=== PATIENT | male | born 1965 | race Caucasian/White ===

== ENCOUNTER 2024-02-07 09:28 | Outpatient (CLI) | payer OTHER, SELFPAY ==
--- NOTE | ~2024-02-07 | CT_ITS ---
EXAMINATION:CT lung screening DATE: 02/07/2024 09:49 INDICATION: Nicotine dependence. Current smoker with 42 pack year history. TECHNIQUE: Computed tomography (CT) of the chest was performed without intravenous contrast. Automate d exposure control and iterative reconstruction technique were employed. The dose-length product (DLP ) was 114.48 mGy-cm. COMPARISON: None. FINDINGS: The lungs demonstrate mild atelectasis. There are pleural plaques bilaterally, which may be seen with asbestos exposure. No pleural effusion. The heart size is normal. No pericardial effusion. There are coronary artery calcifications. There is mild bilateral gynecomastia. There is a 2.[address] in left kidney. There is mild thoracic spondylosis. There is mild chronic height loss of multiple vertebral bodies. IMPRESSION: 1. Lung-RADS category 2: Benign appearance or behavior. Continue annual screening with noncontrast lo w-dose chest CT in 12 months. Reviewed, dictated and finalized at location B. IMPRESSION: 1. Lung-RADS category 2: Benign appearance or behavior. Continue annual screeni ng with noncontrast low-dose chest CT in 12 months.
== END 2024-02-07 09:29 | disposition home or self-care (01) ==
PROVIDERS: PCP Internal Medicine; Visit Provider Internal Medicine
DX: Z12.2 Encounter for screening for malignant neoplasm of respiratory organs (principal); Z87.891 Personal history of nicotine dependence
CPT/HCPCS: 71271

== ENCOUNTER 2024-08-25 20:39 | Emergency (ER) | payer OTHER, SELFPAY ==
--- OUTSIDE RECORDS SUMMARY | 2024-08-25 20:42 | XMS_ITS | Data Portability ---
Author Organization [facility], Main Office Address [address] [place] [address] Care Team Providers Care Biologist Name Role Phone JADEN WALLACE Primary Care Provider JADEN WALLACE Referring Provider JADEN WALLACE Primary Care Provider [facility] Plan Administrator Assessment No assessment recorded. Plan of Treatment Reminders Order Date Submit Date Provider Last Modified By Organization Details Last Modified Time Details Appointments Any 15 2024 09:45A M Jaden Wallace MD Not available Not available Not available Lab urinalysi s, dipstick 2024 025 [email or web address] [facility], [address] [facility] [address], [place], [address], 06/06/2024 10:53:43 CBC w/ auto diff 2023 024 [facility] (Lab), [address] [place], [address], 01/23/2024 19:23:26 vitamin D, 25-hydrox y, total, serum 2023 024 [facility] (Lab), [address] [place], [address], 01/23/2024 20:53:39 TSH, serum or plasma 2023 024 [facility] (Lab), [address] [place], [address], 01/23/2024 20:07:55 vitamin B12, serum 2023 [facility] (Lab), [address] [place], [address], 01/23/2024 20:33:25 testoster one, free + total, serum 2023 [email or web address] [facility] (Lab), [address] [place], [address], 01/30/2024 08:22:52 glycohemo globin, total, blood 2023 [facility] (Lab), [address] [place], [address], 01/23/2024 20:39:19 PSA, serum or plasma 2023 [facility] (Lab), [address] [place], [address], 01/23/2024 20:53:39 CMP, serum or plasma 2023 [facility] (Lab), [address] [place], [address], 01/23/2024 19:37:57 lipid panel, serum 2023 [facility] (Lab), [address] [place], [address], 01/23/2024 19:38:00 Referral None recorded. Procedures colonosco py screening (PROC) - Please call patient to schedule. 2023 [email or web address] Jennifer Rogers MD, [address], [place], [address], 04/03/2024 12:13:28 Surgeries None recorded. Imaging LDCT, chest, for lung cancer screening - Please call patient to schedule. Auth #[id number] 70 good for any in network facility as long as it is completed between 4 and 4. 2023 024 [facility], [address], [place], [address], 02/15/2024 09:22:17 Medication Orders tamsulosi n 0.4 mg capsule 2024 025 [facility] #[id number], [address], [place], [place], [id number], 06/06/2024 10:50:43 cyanocoba tete (vit B-12) 1,000 mcg/mL injection solution [address] [facility]18068, [address], [place], [place], [id number], 05/24/2024 11:25:31 albuterol sulfate HFA 90 mcg/actua tion aerosol inhaler 2024 025 [facility] #55844, [address], [place], [id number], 05/24/2024 10:36:29 cyanocoba tete (vit B-12) 1,000 mcg/mL injection solution [address] [facility]79033, [address], [place], [place], [id number], 02/02/2024 17:19:31 Patient TargetsNo targets recorded. Patient Instructions Encounter Date Encounter Id Patient Instructions Last Modified By Organization Details Last Modified Time 01/23/2024 [id number] advance care planning: care instructions Not available 01/23/2024 16:57:34 advance directives: care instructions Not available 01/23/2024 16:57:34 [place] Advance Directives Not available 01/23/2024 16:57:34 risk assessment* Not available 01/23/2024 16:57:34 INFLUENZA VACCIN E Recommended today, but patient declined TD/TDAP Recommended today, patient declined Ordered Patient will get at local pharmacy/health department PNEUMONIA VACCINE Ordered Recommend ed today, patient declined Patient will get at local pharmacy/health department Recomm ended at age 67 SHINGLES Ordered Recommend ed today, patient declined Patient will get at local pharmacy/health department PSA Ordered COLORECTAL SCREENING Recommended today, but patient declined Ordered DEPRESSION SCREENING Negative Positive BMI Overweight Approp riate Continue healthy eating & exercise NUTRITION Continue healthy eating & exercise PHYSICAL ACTIVITY Need more exercise/physical activity minimum of 10-20 minutes of activity that causes mild breathlessness/da y ALCOHOL USE No alcohol use Occasional/So cial Use TOBACCO USE former smoker current tobacco use LUNG CANCER SCREENING SEXUALLY ACTIVE Yes, Patient is in monogamous relationship HEPATITIS C SCREENING Not indicated GLUCOSE SCREENING Ordered Not needed LIPID SCREENING Ordered [email or web address] Not available 01/23/2024 13:21:42 05/24/2024 [id number] INFLUENZA VACCIN E Recommended today, but patient declined TD/TDAP Recommended today, patient declined Ordered Patient will get at local pharmacy/health department PNEUMONIA VACCINE Ordered Recommend ed today, patient declined Patient will get at local pharmacy/health department Recomm ended at age 67 SHINGLES Ordered Recommend ed today, patient declined Patient will get at local pharmacy/health department PSA Ordered COLORECTAL SCREENING Recommended today, but patient declined Ordered DEPRESSION SCREENING Negative Positive BMI Overweight Approp riate Continue healthy eating & exercise NUTRITION Continue healthy eating & exercise PHYSICAL ACTIVITY Need more exercise/physical activity minimum of 10-20 minutes of activity that causes mild breathlessness/da y ALCOHOL USE No alcohol use Occasional/So cial Use TOBACCO USE former smoker current tobacco use LUNG CANCER SCREENING SEXUALLY ACTIVE Yes, Patient is in monogamous relationship HEPATITIS C SCREENING Not indicated GLUCOSE SCREENING Ordered Not needed LIPID SCREENING Ordered [email or web address] Not available 05/24/2024 10:04:37 06/06/2024 [id number] 1. I will send a prescription for tamsulosin dispensed 90 with 3 refills 2. I will also send a urine test for Exosome which will help us decide whether he needs a biopsy or not 3. We will schedule him for a telehealth after the results return and also discuss how he is doing in terms of his voiding after starting tamsulosin [email or web address] Not available 06/06/2024 10:50:35 Reason for Referral None Reported. Results Created Date Observation Date Name Description Value Unit Range Abnormal Flag Note LastModifiedBy Organization Detail LastModifiedTime 01/23/2001/23/2024 CBC/C OMPLE TE BLD COUNT W/DIF F white blood cells 7.9 x10'3 /uL 4.2-10 .8 Not Available [facility] (Lab) [address] [place], [address], 01/23/2024 19:23:26 01/23/2001/23/2024 CBC/C OMPLE TE BLD COUNT W/DIF F red blood cells 4.92 x10'6 /uL 4.10-5 .80 Not Available [facility] (Lab) [address] [place], [address], 01/23/2024 19:23:26 01/23/2001/23/2024 CBC/C OMPLE TE BLD COUNT W/DIF F hemoglobin 15.8 g/dL 13.2-1 7.0 Not Available [facility] (Lab) [address] [place], [address], 01/23/2024 19:23:26 01/23/2001/23/2024 CBC/C OMPLE TE BLD COUNT W/DIF F hematocrit 47.2 % 39.3-5 0.0 Not Available [facility] (Lab) [address] [place], [address], 01/23/2024 19:23:26 01/23/2001/23/2024 CBC/C OMPLE TE BLD COUNT W/DIF F mean red cell volume 95.9 fL 80.0-9 7.0 Not Available [facility] (Lab) [address] [place], [address], 01/23/2024 19:23:26 01/23/2001/23/2024 CBC/C OMPLE TE BLD COUNT W/DIF F mean red cell hemoglobin 32.1 pg 27.0-3 3.0 Not Available [facility] (Lab) [address] [place], [address], 01/23/2024 19:23:26 01/23/20 24 01/23/2024 CBC/C OMPLE TE BLD COUNT W/DIF F mean RBC HGB concentratio n 33.5 g/dL 31.0-3 6.0 Not Available [facility] (Lab) [address] [place], [address], 01/23/2024 19:23:26 01/23/2001/23/2024 CBC/C OMPLE TE BLD COUNT W/DIF F red cell distribution width 14.2 % 11.8-1 5.5 Not Available [facility] (Lab) [address] [place], [address], 01/23/2024 19:23:26 01/23/2001/23/2024 CBC/C OMPLE TE BLD COUNT W/DIF F platelets 246 x10'3 /uL 150-40 0 Not Available [facility] (Lab) [address] [place], [address], 01/23/2024 19:23:26 01/23/2001/23/2024 CBC/C OMPLE TE BLD COUNT W/DIF F mean platelet volume 11.4 fL 9.0-12 .4 Not Available [facility] (Lab) [address] [place], [address], 01/23/2024 19:23:26 01/23/2001/23/2024 CBC/C OMPLE TE BLD COUNT W/DIF F neutrophils 69.0 % 39.0-7 2.0 Not Available [facility] (Lab) [address] [place], [address], 01/23/2024 19:23:26 01/23/2001/23/2024 CBC/C OMPLE TE BLD COUNT W/DIF F lymphocytes 19.6 % 16.0-4 7.0 Not Available [facility] (Lab) [address] [place], [address], 01/23/2024 19:23:26 01/23/20 24 01/23/2024 CBC/C OMPLE TE BLD COUNT W/DIF F monocytes 9.4 % 5.0-12 .0 Not Available [facility] (Lab) [address] [place], [address], 01/23/2024 19:23:26 01/23/2001/23/2024 CBC/C OMPLE TE BLD COUNT W/DIF F eosinophils 1.1 % 1.0-7. 0 Not Available [facility] (Lab) [address] [place], [address], 01/23/2024 19:23:26 01/23/2001/23/2024 CBC/C OMPLE TE BLD COUNT W/DIF F basophils 0.6 % 0.0-2. 0 Not Available [facility] (Lab) [address] [place], [address], 01/23/2024 19:23:26 01/23/2001/23/2024 CBC/C OMPLE TE BLD COUNT W/DIF F immature granulocytes 0.3 % 0.00-0 .50 Not Available [facility] (Lab) [address] [place], [address], 01/23/2024 19:23:26 01/23/2001/23/2024 CBC/C OMPLE TE BLD COUNT W/DIF F neutrophils, absolute count 5.45 x10'3 /uL 1.5-8. 0 Not Available [facility] (Lab) [address] [place], [address], 01/23/2024 19:23:26 01/23/20 24 01/23/2024 CBC/C OMPLE TE BLD COUNT W/DIF F lymphocytes, absolute count 1.55 x10'3 /uL 1.07-3 .43 Not Available [facility] (Lab) [address] [place], [address], 01/23/2024 19:23:26 01/23/20 24 01/23/2024 CBC/C OMPLE TE BLD COUNT W/DIF F monocytes, absolute count 0.74 x10'3 /uL 0.29-0 .99 Not Available [facility] (Lab) [address] [place], [address], 01/23/2024 19:23:26 01/23/2001/23/2024 CBC/C OMPLE TE BLD COUNT W/DIF F eosinophils, absolute count 0.09 x10'3 /uL 0.02-0 .53 Not Available [facility] (Lab) [address] [place], [address], 01/23/2024 19:23:26 01/23/20 24 01/23/2024 CBC/C OMPLE TE BLD COUNT W/DIF F basophils, absolute count 0.05 x10'3 /uL 0.01-0 .08 Not Available [facility] (Lab) [address] [place], [address], 01/23/2024 19:23:26 01/23/2001/23/2024 CBC/C OMPLE TE BLD COUNT W/DIF F immature granulocytes ,absolute 0.02 x10'3 /uL 0.00-0 .05 Not Available [facility] (Lab) [address] [place], [address], 01/23/2024 19:23:26 01/23/20 24 01/23/2024 CBC/C OMPLE TE BLD COUNT W/DIF F nucleated red blood cells 0.0 % -0 Not Available [facility] (Lab) [address] [place], [address], 01/23/2024 19:23:26 01/23/2001/23/2024 CBC/C OMPLE TE BLD COUNT W/DIF F NRBC# 0.00 x10'3 /uL Not Available [facility] (Lab) [address] [place], [address], 01/23/2024 19:23:26 01/23/2001/23/2024 COMPR EHENS HERMAN METAB OLIC PANEL sodium 138 mmol/ L 137-14 5 Not Available [facility] (Lab) [address] [place], [address], 01/23/2024 19:37:57 01/23/2001/23/2024 COMPR EHENS HERMAN METAB OLIC PANEL potassium 5.1 mmol/ L 3.5-5. 1 Not Available [facility] (Lab) [address] [place], [address], 01/23/2024 19:37:57 01/23/2001/23/2024 COMPR EHENS HERMAN METAB OLIC PANEL chloride 107 mmol/ L 98-107 Not Available [facility] (Lab) [address] [place], [address], 01/23/2024 19:37:57 01/23/2001/23/2024 COMPR EHENS HERMAN METAB OLIC PANEL carbon dioxide 23 mmol/ L 22-30 Not Available [facility] (Lab) [address] [place], [address], 01/23/2024 19:37:57 01/23/2001/23/2024 COMPR EHENS HERMAN METAB OLIC PANEL anion gap 13.1 mmol/ L 14-22 low Not Available [facility] (Lab) [address] [place], [address], 01/23/2024 19:37:57 01/23/2001/23/2024 COMPR EHENS HERMAN METAB OLIC PANEL glucose 72 mg/dL 70-99 Not Available [facility] (Lab) [address] [place], [address], 01/23/2024 19:37:57 01/23/20 24 01/23/2024 COMPR EHENS HERMAN METAB OLIC PANEL BUN 14 mg/dL 8-19 Not Available [facility] (Lab) [address] [place], [address], 01/23/2024 19:37:57 01/23/2001/23/2024 COMPR EHENS HERMAN METAB OLIC PANEL creatinine 1.09 mg/dL 0.66-1 .25 Not Available [facility] (Lab) [address] [place], [address], 01/23/2024 19:37:57 01/23/2001/23/2024 COMPR EHENS HERMAN METAB OLIC PANEL GFR >60 Refer ence Range : [place] GFR Healt hy Adult : >60 mL/mi n/1.7 3 m2 Chron ic Kidne y Disea se: 15-60 mL/mi n/1.7 3 m2 Kidne y Failu re: <15/m L/min /1.73 m2 www.n iddk. nih.g ov The MDRD study equat ion has not been valid ated in child izaiah <18 years of age; pregn ant women ; the elder ly >85 years of age; or in some racia l or ethni c subgr oups, such as Hisla nics. Outsi de the valid ated shital eters , estim ated GFR is less accur ate, requi ring clini susanne judgm ent on a case- by-ca se basis . Clini susanne inter preta tion for other races and ages must be made by the clini elieser. The MDRD study equat ion has not been valid ated for the evalu ation of serum creat inine relat ed to nutri eric l statu s or medic ation usage . For perso ns <18 years of age, a pedia tric GFR calcu lator is avail able on the F websi te: https ://priyanka w.pat winston.o mary/pr ofess ional s/kdo qi/gf r_cal culat or Not Available [facility] (Lab) [address] [place], [address], 01/23/2024 19:37:57 01/23/2001/23/2024 COMPR EHENS HERMAN METAB OLIC PANEL alkaline phosphatase 65 U/L 38-126 Not Available [facility] (Lab) [address] [place], [address], 01/23/2024 19:37:57 01/23/2001/23/2024 COMPR EHENS HERMAN METAB OLIC PANEL alanine aminotransfe rase 10 U/L 0-50 Not Available [facility] (Lab) [address] [place], [address], 01/23/2024 19:37:57 01/23/2001/23/2024 COMPR EHENS HERMAN METAB OLIC PANEL aspartate aminotransfe rase 30 U/L 15-46 Not Available [facility] (Lab) [address] [place], [address], 01/23/2024 19:37:57 01/23/2001/23/2024 COMPR EHENS HERMAN METAB OLIC PANEL bilirubin, total 1.00 mg/dL 0.20-1 .30 Not Available [facility] (Lab) [address] [place], [address], 01/23/2024 19:37:57 01/23/2001/23/2024 COMPR EHENS HERMAN METAB OLIC PANEL calcium 9.7 mg/dL 8.4-10 .2 Not Available [facility] (Lab) [address] [place], [address], 01/23/2024 19:37:57 01/23/2001/23/2024 COMPR EHENS HERMAN METAB OLIC PANEL total protein 7.3 g/dL 6.3-8. 2 Not Available [facility] (Lab) [address] [place], [address], 01/23/2024 19:37:57 01/23/2001/23/2024 COMPR EHENS HERMAN METAB OLIC PANEL albumin 4.4 g/dL 3.4-5. 0 Not Available [facility] (Lab) [address] [place], [address], 01/23/2024 19:37:57 01/23/2001/23/2024 COMPR EHENS HERMAN METAB OLIC PANEL globulin 2.9 g/dL 2.6-4. 2 Not Available [facility] (Lab) [address] [place], [address], 01/23/2024 19:37:57 01/23/2001/23/2024 COMPR EHENS HERMAN METAB OLIC PANEL A/G ratio 1.5 ratio 1.0-2. 0 Not Available [facility] (Lab) [address] [place], [address], 01/23/2024 19:37:57 01/23/2001/23/2024 LIPID PANEL cholesterol 145 mg/dL 140-19 9 NIH LARRY NSUS RECOM MENDA TION FOR BRITNI STERO L: ADULT CHILD LOW RISK: <200 <170 BORDE RLINE : <200- 239 ----- HIGH RISK: >240 >200 Not Available [facility] (Lab) [address] [place], [address], 01/23/2024 19:37:59 01/23/2001/23/2024 LIPID PANEL triglyceride s 42 mg/dL 0-150 NIH LARRY NSUS REPOR T RECOM MENDA TION FOR TRIGL YCERI RENÉ: ADULT CHILD LOW RISK: <150 ----- BODER LINE: 150-1 99 ----- HIGH RISK: >200 ----- Not Available [facility] (Lab) [address] [place], [address], 01/23/2024 19:37:59 01/23/2001/23/2024 LIPID PANEL HDL cholesterol 91 mg/dL 40- Not Available [facility] (Lab) [address] [place], [address], 01/23/2024 19:37:59 01/23/2001/23/2024 LIPID PANEL LDL cholesterol, calculated 46 mg/dL 0-130 NIH LARRY NSUS REPOR T RECOM MENDA TIONS FOR LDL: ADULT CHILD LOW RISK <130 <110 (OPTI MAL LDL) <100 ----- WALTDE RLINE : 130-1 59 ----- HIGH RISK: >160 >130 A TRIGL YCERI DE RESUL T >400 INVAL IDATE S THE CALCU LATIO N FOR LDL FRACT IONAT ION - THE LDL RESUL T WILL NOT BE REPOR ANALY. Not Available [facility] (Lab) [address] [place], [address], 01/23/2024 19:37:59 01/23/2001/23/2024 VITAM IN D 25-HY DROXY [id number] 22.8 NG/mL 30-100 low Vitam in D Statu s: Defic ient: <20 ng/mL Insuf ficie nt: 20-29 ng/mL Suffi cient : 30-10 0 ng/mL Not Available [facility] (Lab) [address] [place], [address], 01/23/2024 19:57:41 01/23/2001/23/2024 PSA SCREE N PSA medicare screen 6.04 NG/mL 0.00-4 .00 high Not Available [facility] (Lab) [address] [place], [address], 01/23/2024 20:07:50 01/23/2001/23/2024 TSH thyroid-stim ulating hormone 0.631 uIU/m L 0.465- 4.680 Not Available [facility] (Lab) [address] [place], [address], 01/23/2024 20:07:55 01/23/2001/23/2024 VITAM IN B12 (SHIVANI TETE ) vb12 190 pg/mL 239-93 1 low Not Available [facility] (Lab) [address] [place], [address], 01/23/2024 20:33:24 01/23/2001/23/2024 HEMOG LOBIN A1C HA1C 5.4 % 4.0-6. 0 Diabe whitley Scree amado Crite joann: <5.7% Consi stent with absen ce of diabe whitley 5.7-6 .4% Consi stent with incre ased risk for diabe whitley (pred iabet es) >OR=6 .5% Consi stent with diabe whitley REFER ENCE: Diabe whitley Care 2015, 39(Rodney ppl.1 ):s13 -s22 Not Available [facility] (Lab) [address] [place], [address], 01/23/2024 20:39:19 01/23/2002/01/2024 TESTO STERO NE, FREE+ TOTAL LC/MS testosterone , total, lc/MS 659.4 NG/dL 264.0- 916.0 This [facility] rp LC/MS -MS metho d is curre ntly certi fied by the CDC Hormo ne Stand ardiz ation Progr am (HoSt ). Adult male refer ence inter chu is based on a popul ation of healt hy nonob ferny males (BMI <30) betwe en 19 and 39 years old. Alin kwong et.al . JCEM 2017, 102;1 161-1 173. PMID: 54862 103. Not Available [facility] (Lab) [address] [place], [address], 02/01/2024 16:13:39 01/23/2002/01/2024 TESTO STERO NE, FREE+ TOTAL LC/MS testosterone , free 15.23 NG/dL 5.00-2 1.00 Not Available [facility] (Lab) [address] [place], [address], 02/01/2024 16:13:39 01/23/2002/01/2024 TESTO STERO NE, FREE+ TOTAL LC/MS % free testosterone 2.31 % 1.50-4 .20 Perfo rmed at: [facility] [place] [address] [facility] , [place] [address] Lab Direc tor: Maryuri vieira MD, Phone : [phone] Not Available [facility] (Lab) [address] [place], [address], 02/01/2024 16:13:39 06/06/19 25 06/06/2024 urina lysis , dipst ick Leukocytes (reference range: negative brando/ l) Negati ve Not Available [facility] [address], [address], 06/06/2024 10:03:17 06/06/19 25 06/06/2024 urina lysis , dipst ick Nitrite (reference rage: negative mg/dl) negati ve Not Available [facility] [address], [address], 06/06/2024 10:03:17 06/06/19 25 06/06/2024 urina lysis , dipst ick Urobilinogen (reference range: 0.2-1 mg/dl) 0.2 Not Available [facility] [address] [place] [address], [place], [address], 06/06/2024 10:03:17 06/06/19 25 06/06/2024 urina lysis , dipst ick Protein (reference range: negative mg/dl) Negati ve Not Available [facility] [address], [place], [address], 06/06/2024 10:03:17 06/06/19 25 06/06/2024 urina lysis , dipst ick pH (reference range: 5-7) 5.5 Not Available s_ gmg [facility] [address], [place], [address], 06/06/2024 10:03:17 06/06/1906/06/2024 urina lysis , dipst ick Blood (reference range: negative Catalino/ l) Negati ve Not Available [facility] [address] [place] [address] [address], [place], [address], 06/06/2024 10:03:17 06/06/19 25 06/06/2024 urina lysis , dipst ick Specific [place] (reference range: 1.005-1.030) 1.025 Not Available s _gmg [facility] [address] [place] [address] [address], [place], [address], 06/06/2024 10:03:17 06/06/19 25 06/06/2024 urina lysis , dipst ick Ketone (reference range: negative mg/dl) Negati ve Not Available [facility] [address] [place] [address] [address], [place], [address], 06/06/2024 10:03:17 06/06/19 25 06/06/2024 urina lysis , dipst ick Bilirubin (reference range: negative mg/dl) Negati ve Not Available [facility] [address] [place] [address] [address], [place], [address], 06/06/2024 10:03:17 06/06/19 25 06/06/2024 urina lysis , dipst ick Glucose (reference range: negative mg/dl) Negati ve Not Available [facility] [address], [place], [address], 06/06/2024 10:03:17 06/06/19 25 06/06/2024 urina lysis , dipst ick Appearance Clear Not Available [facility] [address], [place], [address], 06/06/2024 10:03:17 06/06/19 25 06/06/2024 urina lysis , dipst ick Color Yellow Not Available [facility] [place] [address], [place], [address], 06/06/2024 10:03:17 02/15/20 24 02/07/2024 LDCT, chest , for lung cance r colleen fischer No observ ation record ed. [facility] [address], [place], [address], 02/15/2024 09:22:17 Result Notes None recorded. Problems Name Problem SNOMED Code Status Onset Date Resolution Date Notes Provider Name and Address Organization Details Recorded Time Impacted cerumen of bilateral ears 10065755588 13628 Completed 202206/15/2022 DON Gutierrez [place] [facility] 4 10:18:56 Impacted cerumen of bilateral ears 52821351467 45105 Completed 202005/17/2022 DON Gutierrez [place] [facility] 4 10:18:56 Adult health examinati on Active 2021 Not Available [facility] 3 01:36:52 Prostate specific antigen above reference range 443024633 Active 2021 Not Available [facility] 3 01:36:52 Screening for malignant neoplasm of prostate Completed 202105/17/2022 Not Available [facility] 3 01:36:52 Essential hypertens ion 87032891 Active 2020 Not Available [facility] 3 01:36:53 Hemorrhoi ds 52738382 Active 2020 Not Available [facility] 3 01:36:53 Smoker 52747401 Active Not Available [facility] 3 01:36:53 Hyperglyc emia 40612401 Active 2021 Not Available [facility] 3 01:36:53 Fatigue 58450352 Completed Jaden Wallace MD [address], [place], [address] , [facility] 4 10:51:30 Skin lesion 65483691 Active 2021 Not Available [facility] 3 01:36:53 Impacted cerumen of bilateral ears 02010307964 32049 Completed 202201/23/2024 Justina collins, RMA null, [facility] 4 10:18:56 Impacted cerumen in right ear 04478108122 28217 Completed 202201/23/2024 Justina collins, RMA null, [place] [facility] 4 10:13:05 Acute sinusitis 50070051 Completed 202201/23/2024 Justina collins, RMA null, [place] [facility] 4 10:13:01 Polyp of colon 32877469 Active 2023 Jaden Wallace MD [address], [place], [address] , [facility] 4 10:49:54 Fatigue 86308359 Active 2023 Jaden Wallace MD [address], [place], [address] , [facility] 4 10:51:30 Vitamin D deficienc y 47403364 Active 2023 Angie Rea LPN null, [facility] 4 11:38:09 Cobalamin deficienc y [id number] Active 2023 Angie Rea LPN null, [facility] 4 11:39:18 Vitamin B12 deficienc y (non anemic) 40526608 Active 2023 Candice Nova MA null, [facility] 4 11:58:16 Acute bronchiti s 97608206 Active 2024 Jaden Wallace MD [address], [address] , [facility] 5 10:35:19 Upper respirato ry infection 20985294 Active 2024 Candice Nova MA null, [facility] [facility] 5 11:17:44 Benign prostatic hyperplas ia with outflow obstructi on [id number] Active 2024 Giovanni Leiva MD [address], [address] , [facility] 5 10:48:37 Problem Notes Documentation Provider Name and Address Organization Details Recorded Time Urologist Consult Note : [address], [address] [id number], Denny (Legal name: Jerrod Medel) (id #[id number], : 1965) [facility] [address] [place] [address], [address] [address] Encounter Summary - Progress Note Date Printed: 06/06/2024 Documents sent via fax will include the followingmessage: This fax may contain sensitive and confidential personal health information that is being sent for the sole use of the intended recipient. Unintended recipients are directed to securely destroy any materials received. You are hereby notified that the unauthorized disclosure or other unlawful use of this fax or any personal health information is prohibited. To the extent patient information contained in this fax is subject to 42 CFR Part 2, this regulation prohibits unauthorized disclosure of these records. If you received this fax in error, please visit [email or web address]|[id number]|2024-08-25 22:19:00|2024-08-25 22:19:00|XMS_ITS|THANHG LORENA|External Medical Summaries|[id number]|" Clinical Summary Created on: August 25, 2024 Jerrod Medel : 1965 Sex: Male Author Organization [facility] Address [address] [place], [place] [id number] Care Team Providers Care Biologist Name Role Phone Unavailable Primary Care Provider Unavailabl e Social History Tobacco Use Types Packs/Day Years Used Date Smoking Tobacco: Never Assessed Sex and Gender Information Value Date Recorded Sex Assigned at Not on file Legal Sex Male 6:13 PM CDT Gender Identity Not on file Sexual Orientation Not on file Plan of Treatment Health Maintenance Due Date Last Done Comments Colorectal Cancer Screening Colonoscopy (10 Years) 1965 Annual Physical 1970 Hepatitis C 1985 DTaP, Tdap and Td Vaccines ( 1 - Tdap) 1986 Hepatitis B Vaccines (1 of 3 - 19+ 3-dose series) 1986 Pneumococcal Vaccine: 50+ Ye ars (1 of 1 - PCV) 2017 Zoster Vaccines (1 of 2) 2017 COVID-19 Vaccine ( - 2023-2 5 season) 2023 Meningococcal B Vaccine Aged Out No l onger eligible based on patient's age to complete this topic Meningococcal Vaccine Aged Out No naif rodrick eligible based on patient's age to complete this topic RSV Immunizations Under 20 Months Aged Out No longer eligible based on patient's age to complete this topic "
--- OUTSIDE RECORDS SUMMARY | 2024-08-25 20:42 | XMS_ITS | Clinical Summary ---
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
[2024-08-25 20:44] VITALS: BP 151/91; PULSE 94; RESP 16; TEMP 36.4; O2SAT 100
--- NOTE | 2024-08-25 21:48 | PC.NURSE ---
2148-CALLED PATIENT FOR AREA C. PATIENT DID NOT ANSWER. ADVISED BY FAMILY PATIENT WAS OUTSIDE SMOKING. FAMILY WENT OUTSIDE TO RETRIEVE PATIENT.
[2024-08-25] MEDS: HYDROcodone/acetaminophen (*CRX) 5-325 MG TABLET 1 TAB PO (22:04)
[2024-08-25] MEDS: KETOROLAC 30 MG/ML VIAL (*BKC) IM (22:06)
[2024-08-25] MEDS: predniSONE 20 MG TABLET 40 MG PO (22:09)
[2024-08-25 22:29] LABS: Add Urine Microscopic? NO; Appearance Urine Clear (Clear); Bilirubin Urine Negative (Negative); Blood Urine Negative (Negative); Color Urine Yellow (Yellow); Glucose Urine UA Negative (Negative); Ketones Urine Negative (Negative); Leukocyte Esterase Ur Negative LEU/UL (Negative); Nitrate Urine Negative (Negative); Protein Urine Negative (Negative); Specific Grav Ur 1.007 (1.001-1.035); Urobilinogen Urine 0.2 mg/dL (<2.0)
[2024-08-25 22:50] VITALS: BP 146/93; PULSE 90; RESP 16; TEMP 36.6; O2SAT 100
--- NOTE | 2024-08-25 22:53 | PC.NURSE ---
2254-CALLED TO PATIENT'S ROOM. STATES DOES NOT WANT TO WAIT FOR URINE RESULTS. WANTS TO GO HOME NOW. ADVISED I WILL INFORM ERP OF REQUEST. SPOKE WITH ERP. WILL DISCHARGE PATIENT.
--- NOTE | 2024-08-25 22:54 | ED.BACK ---
HPI - Back Pain/Injury General Chief Complaint: Extremity Injury, Lower Stated Complaint: right butt pain down right leg Time Seen by Provider: 08/25/24 21:50 Related Data Home Medications Medication Instructions Recorded Confirmed Last Taken Type lisinopril 10 mg tablet 10 mg PO DAILY 05/24/24 05/24/24 Unknown History Allergies Allergy/AdvReac Type Severity Reaction Status Date / Time No Known Allergies Allergy Unverified 05/24/24 10:25 [facility] Social History Social History Smoking status: Current every day smoker Tobacco type: cigarettes Alcohol intake: current Drinks per week: 15 Substance use: never Substance use type: does not use Living arrangements: with family Spiritual care concerns: No Course Vital Signs Vital signs: Vital Signs Temperature 97.5 F L 08/25/24 20:44 Pulse Rate 94 08/25/24 20:44 Respiratory Rate 16 08/25/24 20:44 Blood Pressure 151/91 H 08/25/24 20:44 Pulse Oximetry 100 08/25/24 20:44 Temperature 97.5 F L 08/25/24 20:44 Pulse Rate 94 08/25/24 20:44 Respiratory Rate 16 08/25/24 20:44 Blood Pressure 151/91 H 08/25/24 20:44 Pulse Oximetry 100 08/25/24 20:44 MDM - Back Pain/Injury MDM Narrative Medical decision making narrative: ED COURSE AND MEDICAL DECISION MAKINM with back pain R lower back going down leg ongoing for last few weeks, but worsening. Normal motor and sensory exam. Patient able to ambulate. No evidence of acute cord compression, osteomyelitis/discitis or cauda equina without saddle anesthesia, urinary retention/incontinence, numbness/tingling in lower extremities, fever, history of IV drug use, cancer or immunosuppression. Doubt AAA or aortic dissection without severe pain/discomfort or any neurovascular deficits. [Ketorolac 30mg IM and norco 5mg] given for symptomatic relief. At this time, I do not believe the patient requires imaging studies. Will reevaluate the need for further investigations after the medications. On reevaluation, the symptoms are improved. Patient is able to rest more comfortably. Ambulating without difficulty. [I discussed management of acute back pain in detail, explaining the need to remain active and the goals of pain control.] Discussed follow-up with PCP as he may need MRI and physical therapy if not improved. Patient is given return precautions and instructed to come back at any point in time for worsening pain, fevers, weakness, difficulty walking, urinary or fecal incontinence. Patient expressed understanding of instructions. Lab Data Labs: Lab Results 08/25/24 Range/Units 22:20 Urine Color Yellow (Yellow) Urine Appearance Clear (Clear) Urine pH 5.0 (5.0-9.0) Ur Specific [place] 1.007 (1.001-1.035) Urine Protein Negative (Negative) mg/dL Urine Glucose (UA) Negative (Negative) mg/dL Urine Ketones Negative (Negative) mg/dL Ur Blood (Man) Negative (Negative) Urine Nitrate Negative (Negative) Urine Bilirubin Negative (Negative) Urine Urobilinogen 0.2 (<2.0) mg/dL Leukocyte Esterase Rfl Negative (Negative) TORIE/UL Discharge Plan Discharge Clinical Impression: Radiculopathy Patient Disposition: Home Condition: Stable Instructions: Lumbar Radiculopathy (ED) Patient Language: Filipino Prescriptions: New prednisone 20 mg tablet 40 mg PO DAILY 4 Days Qty: 8 0RF acetaminophen [Tylenol Extra Strength] 500 mg tablet 1,000 mg PO Q6H PRN (Reason: pain) Qty: 50 0RF methocarbamol 750 mg tablet 750 mg PO TID PRN (Reason: muscle spasm) Qty: 30 0RF No Action lisinopril 10 mg tablet 10 mg PO DAILY Follow-up/Referrals: Rodrigo,Giacomo Bill MD [Primary Care Provider] - 2 Days Stand Alone Forms: Work/School Release IP
== END 2024-08-25 22:53 | disposition home or self-care (01) ==
PROVIDERS: Emergency Provider Emergency Medicine; PCP Internal Medicine
DX: M54.16 Radiculopathy, lumbar region (principal); F17.210 Nicotine dependence, cigarettes, uncomplicated
CPT/HCPCS: 81003; 96372; 99283; A9270; J1885; J7512

== ENCOUNTER 2025-01-03 07:43 | Outpatient (CLI) | payer OTHER, SELFPAY ==
--- NOTE | ~2025-01-03 | PE_ITS ---
EXAMINATION: PET_PETPSMAST_PT DATE: 01/03/2025 10:06 INDICATION: Prostate cancer. TECHNIQUE: 4.814 mCi of Ga-68 gozetotide was administered intravenously. Low dose computed tomography (CT) images were acquired from the base of the brain to the proximal thighs for attenuation correction and anatomic localization. Automated exposure control was employed. Dose-length product (DLP) was 974 mGy- cm. Positron emission tomography (PET) images were acquired in the same distribution. COMPARISON: CT abdomen and pelvis 12/07/2018, chest CT 02/07/2024 FINDINGS: Head/neck: There are no pathologically enlarged lymph nodes. Chest: The lungs demonstrate mild atelectasis. There are pleural plaques bilaterally, which may be seen with asbestos exposure. No pleural effusion. The heart size is normal. No pericardial effusion. There are coronary artery calcifications. There are focal areas of increased activity in the superior mediastinum bilaterally without abnormal CT correlate, most likely ganglia. Abdomen/pelvis/proximal thighs: The liver, gallbladder, spleen, pancreas, adrenal glands, and right kidney are normal. There is a 2.9 cm cyst in left kidney. There is no urolithiasis. The prostate is mildly enlarged. There is increased activity in the prostate bilaterally with maximum SUV of 9.9 on the right. The appendix is normal. There are no dilated loops of bowel. There are no pathologically enlarged lymph nodes. There is no free intraperitoneal fluid. There is no osseous malignancy. IMPRESSION: 1. Mildly enlarged prostate with increased activity, consistent with primary malignancy. No specific evidence of metastatic disease. Reviewed, dictated and finalized at location E. IMPRESSION: 1. Mildly enlarged prostate with increased activity, consistent with primary ma lignancy. No specific evidence of metastatic disease.
--- OUTSIDE RECORDS SUMMARY | 2025-01-03 07:50 | XMS_ITS | Clinical Summary ---
Author Organization [facility] Address [facility] [place] [address] Care Team Providers Care Varnish Dipper Name Role Phone Unavailable Primary Care Provider [...] 2) 2017 COVID-19 Vaccine (2023-2 5 season) 2024 Meningococcal B Vaccine Aged Out No l onger eligible based on patient's age to complete this topic Meningococcal Vaccine Aged Out No naif rodrick eligible based on patient's age to complete this topic RSV Immunizations Under 20 Months Aged Out No longer eligible based on patient's age to complete this topic
== END 2025-01-03 07:44 | disposition home or self-care (01) ==
PROVIDERS: PCP Internal Medicine; Visit Provider Radiology Radiation Oncology
DX: C61 Malignant neoplasm of prostate (principal); Z51.0 Encounter for antineoplastic radiation therapy; N40.0 Benign prostatic hyperplasia without lower urinary tract symptoms
CPT/HCPCS: 78815; A9596

== ENCOUNTER 2025-02-19 09:37 | Outpatient (CLI) | payer OTHER, SELFPAY ==
--- NOTE | ~2025-02-19 | XR_ITS ---
EXAMINATION: XR chest 2V, 02/19/2025 11:10 SEDIMENTATIONIST HISTORY: C61 - Malignant neoplasm of prostate PREOP COMPARISON: No comparisons available. Technique: 2 views obtained. Findings: The lungs are clear, no effusion. No pneumothorax. Heart is normal size. Mediastinal and hilar contours are within normal limits. Bony thorax no acute abnormality. Impression: No acute cardiopulmonary abnormality. Reviewed, dictated and finalized at location P. MENTATIONIST Impression: No acute cardiopulmonary abnormality.
--- OUTSIDE RECORDS SUMMARY | 2025-02-19 10:01 | XMS_ITS | Clinical Summary ---
Author Organization [facility] Address [address] [place] [address] Care Team Providers Care Animal Care Giver Name Role Phone Unavailable Primary Care Provider [...] Vaccines (1 of 2) 2017 COVID-19 Vaccine (2024-2 6 season) 2024 Influenza Adult (#1) 2025 Hepatitis A Vaccines Aged Out No long er eligible based on patient's age to complete this topic Meningococcal B Vaccine Aged Out No l onger eligible based on patient's age to complete this topic Meningococcal Vaccine Aged Out No naif rodrick eligible based on patient's age to complete this topic RSV Immunizations Under 20 Months Aged Out No longer eligible based on patient's age to complete this topic
--- NOTE | 2025-02-19 10:57 | ECG_ITS ---
Test Date: 2025-02-19 11:10:49 Measurements Intervals [place] Rate: 79 P: 71 PA: 144 QRS: 72 QRSD: 85 T: 71 QT: 357 QTc: 410 Interpretive Statements SINUS RHYTHM artifact Electronically Signed On 02-19-2025 18:05:44 CONSTRUCTION TRADES TEACHER by Luis Felipe Saldaña M.D.
[2025-02-19 12:34] LABS: Hematocrit 46.0 % (42.0-52.0); Hemoglobin 15.2 g/dL (14.0-18.0); Immature Granulocyte Percent A 0.3 % (0-0.5); Lymphocytes Absolute Auto 1.97 K/mm3 (0.9-3.2); Mean Corpuscular HGB Conc 33.0 g/dl (32-36); Mean Corpuscular Hemoglobin 30.4 pg (26-34); Mean Corpuscular Volume 92.0 fl (80-100); Nucleated Red Blood Cells Absolute Auto 0.000 K/mm3 (0.0-0.012); Nucleated Red Blood Cells Perc 0.0 % (0.0-0.2); Platelet Count Result 236 k/mm3 (150-375); Red Blood Count 5.00 M/mm3 (4.6-6.20); White Blood Count 6.2 K/mm3 (4.5-10.0)
[2025-02-19 12:45] LABS: INR 0.9; Partial Thromboplastin Time 27.9 Seconds (22.3-36.8); Prothrombin Time 12.6 Seconds (11.1-14.7)
[2025-02-19 12:47] LABS: Add Urine Microscopic? NO; Appearance Urine Clear (Clear); Glucose Urine UA Negative (Negative); Leukocyte Esterase Ur Negative LEU/UL (Negative); Nitrate Urine Negative (Negative); Specific Grav Ur 1.016 (1.001-1.035)
[2025-02-19 12:55] LABS: Alanine Aminotransferase 10 U/L (6-50); Albumin Level 4.3 g/dL (3.5-5.1); Alkaline Phosphatase 65 U/L (38-126); Anion Gap 4 mmol/L (4-12); Aspartate Amino Transferase 25 U/L (17-59); Bilirubin,Total 0.6 mg/dL (0.2-1.3); Blood Urea Nitrogen 12 mg/dL (9-20); Calcium 9.2 mg/dL (8.4-10.2); Carbon Dioxide 29 mmol/L (22-30); Chloride 104 mmol/L (98-107); Estimated Glomerular Filt Rate > 60; Glucose 82 mg/dL (65-110); Potassium 4.3 mmol/L (3.4-5.0); Sodium 137 mmol/L (137-145); Total Protein 8.1 g/dL (6.3-8.2)
== END 2025-02-19 09:38 | disposition home or self-care (01) ==
PROVIDERS: PCP Internal Medicine; Visit Provider Urology
DX: C61 Malignant neoplasm of prostate (principal); Z01.818 Encounter for other preprocedural examination
CPT/HCPCS: 36415; 71046; 80053; 81003; 85025; 85610; 85730; 86850; 86900; 86901; 93005

== ENCOUNTER 2025-02-28 01:08 | Day surgery (SDC) | payer OTHER, SELFPAY ==
[2025-02-19 10:07] VITALS: BP 146/88; PULSE 87; RESP 16; TEMP 36.7; O2SAT 100; BMI 25.2
--- NOTE | 2025-02-19 10:24 | PC.NURSE ---
[facility] has started construction of its new state of the art ER which will open Spring 2026. With this, we anticipate parking may be a challenge for some our surgical patients and families. Parking spaces are limited but are available for all Surgical, obstetrics, and ER patients sharing this lot. If you arrive and find you are having a hard time finding a parking space, please note that we understand the challenges, please drive around the hospital and park near Hospital Entrance 1. When you enter this entrance, you can ask a volunteer to direct or take you back to the surgical waiting area to check in. We appreciate everyone?s understanding of these expected challenges while we build for your future. Report to the Outpatient Waiting Room, entrance under the green pavilion located off [address], at time ___6:00AM___ on date ___02/28/25__. Planned Procedure Time: ___7:30AM____.? Time changes happen often and if your time is changed the preop area will call you the afternoon before. - You and your visitor will be asked to self-screen and do not enter if you have any COVID symptoms. Please call surgeon if you need to reschedule. - A mask is optional within the hospital at this time. Patients may have clear liquids (water, carbonated beverages, clear teas, apple juice) until 3 hours prior to surgery (4:30AM) with a maximum of 20 ounces. - No food from midnight until time of surgery and no smoking, or chewing tobacco (or any form of nicotine). No chewing gum, candy or mints. Take only the following medications with a SIP of water on the morning of surgery: ____ALBUTEROL INHALER NEEDED DO NOT STOP ANY OF YOUR OTHER PRESCRIPTION MEDICATIONS PRIOR TO SURGERY EXCEPT THE FOLLOWING Hold all vitamins and supplements for 3 days per anesthesiologist. Medications to discontinue per physician ____HOLD IBUPROFEN (ALL NSAIDS) 7 DAYS PRE-OP PER DR VELEZ. Date to take last dose____02/20/25 Please no make-up, nail latvian, hairspray, perfume, deodorant, or body powder the day of surgery.? No jewelry (including any body piercings) or valuables the day of surgery, leave them at home.? Please take a shower or bath the night before, or the morning of, surgery with an antibacterial soap.? Wear comfortable, loose fitting clothing.? - Jewelry must be removed prior to entering the operating room.? Rings and piercings that are not removed may be cut off. - The hospital will not accept responsibility for valuables.? - Please leave all valuables, including medications, at home the day of surgery. If you are going home after surgery, a licensed auto carrier driver must drive you home.? - NO public transportation without another adult if you receive anesthesia. - We recommend that an adult stay with you for 24 hours following discharge. - We also recommend that you do not drive, make important decision, drink alcoholic beverages, or take any drugs that were not prescribed by your health care provider for at least 24 hours after your discharge time. Follow any additional instructions given to you from your surgeon. Telephone instructions given to ___PATIENT and asked if any additional questions and then verbalized understanding. Patient advised to call surgeon office or pre surgery nurse liaison [phone] if any additional questions.
--- NOTE | 2025-02-22 06:26 | PM.IMHP ---
H&P: HPI History of Present Illness Date/Time: 02/22/25 06:26 Chief Complaint: Prostate cancer Narrative: 11/2024: ?Care transferred to Dr. Lao after Dr. Chowdh[facility] prison ?- 10/2024: ?PSA: 8.4 ?- ?08/21 cores (RB, RLB, RLM, RLA, BERTA), all GGG-2 ?- ?NCCN Favorable IR ?- ?-PNI/-ADDY ?- ?Volume: 23gm by MRI 12/11/24: ?Decipher Prostate ?Decipher Score: 0.6 (0-.45 Low Risk / .45-.60 Int. Risk / >.60 High Risk) in comparison to similar NCCN risk ?- 5-year Risk of Metastasis (with standard therapy): 1.2% ?- 10-year Risk of Metastasis (with standard therapy): 3.0% ?- 15-year Risk of Mortality (with standard therapy): 4.6% ?- Risk of Adverse Pathology at RP: 23.1% ?74th percentile / 26% of patients with similar clinical and pathological features typically have higher Genomic Scores 12/12/24: ?Opted for IMRT 12/25/24: ?Met. with Dr. Burciaga ?- recommends ADT [id number] (based on Decipher) 01/03/25: ?PSMA-PET (Dr. Burciaga): uptake only in prostate 01/08/25: --- Called, has decided to proceed with RALP, BPLND -- message sent to JUAN. Review of Systems Cardiovascular: Cardiovascular: Denies chest pain, Denies lightheadedness, Denies palpitations and Denies dyspnea Respiratory: Respiratory: Denies dyspnea Gastrointestinal: Gastrointestinal: Denies diarrhea, Denies nausea and Denies vomiting Genitourinary: Genitourinary: Denies hematuria and Denies dysuria Endocrine: Endocrine: Denies palpitations PMFSH Social History Social History Smoking packs per day: 1 Smoking cigarettes per day: 20.0 Years smoked: 40 Smoking pack-years: 40.00 Smoking status: Current every day smoker Tobacco type: cigarettes Alcohol intake: current Drinks per week: 14 Substance use: never Substance use type: does not use Living arrangements: with family Additional living arrangements comments: Spiritual care concerns: No Meds Home Medications and Allergies Home Medications ?Medication ?Instructions ?Recorded ?Confirmed ?Type lisinopril 10 mg tablet 10 mg PO DAILY 05/24/24 02/19/25 History acetaminophen 500 mg tablet 1,000 mg (2 x 500 mg) PO Q6H PRN 08/25/24 02/19/25 Rx (Tylenol Extra Strength) pain #50 tabs methocarbamol 750 mg tablet 750 mg PO TID PRN muscle spasm #30 08/25/24 02/19/25 Rx tabs albuterol sulfate 90 mcg/actuation 2 puff inhalation Q4-6H PRN 02/19/25 02/19/25 History aerosol inhaler shortness of breath or wheezing ibuprofen 200 mg tablet (IBU-200) 600 mg PO Q6H PRN pain 02/19/25 02/19/25 History Allergies Allergy/AdvReac Type Severity Reaction Status Date / Time No Known Allergies Allergy Verified 02/19/25 09:48 Exam Const: General: no acute distress Resp: Effort & Inspection: normal respiratory effort GI: Inspection: non-distended GI Palp: No abdominal tenderness and No Guarding due to palpation present (GI) Auscultation: normal bowel sounds Assessment and Plan Assessment and plan (1) Prostate cancer: Code(s): C61 - Malignant neoplasm of prostate Status: Acute Assessment and Plan: Robotic assisted radical prostatectomy with bilateral pelvic lymphadenectomy
[2025-02-28] VITALS (13 sets, daily range): BP systolic 127–156; BP diastolic 69–97; PULSE 73–94; RESP 12–18; TEMP 36.3–37; O2SAT 97–100
--- OUTSIDE RECORDS SUMMARY | 2025-02-28 02:07 | XMS_ITS | Clinical Summary ---
Author Organization [facility] Address [address] [place] [address] Care Team Providers Care Traveling Repair Accountant Name Role Phone Unavailable Primary Care Provider [...]
--- NOTE | 2025-02-28 06:28 | WPDHPUPDATE1 ---
History and Physical Update Update Date/Time: 02/28/25 06:28 History and Physical has been reviewed, including an updated exam of the patient. There are NO changes in the patient's condition. Risks, benefits, and alternatives have been discussed and questions answered. Patient agrees to proceed with procedure.
--- NOTE | 2025-02-28 06:53 | WPDANESEPPF ---
Anes - Initial Pre Proc Eval Procedure: Operation Date: 02/28/25 07:30 Proposed Procedures p Robotic Assisted Prostatectomy, Possible Bilateral Pelvic Lymph Node Dissection - Mulugeta Lao MD Date/Time: 02/28/25 06:53 Surgeon: Mulugeta Lao MD Pre Op Diagnosis: prostate CA Patient Data Age: 59 Gender: M Height: 1.8 m Weight: 81.9 kg Last Vital Signs Temp 98.1 F 02/19/25 10:07 Pulse 87 02/19/25 10:07 Resp 16 02/19/25 10:07 BP 146/88 H 02/19/25 10:07 Pulse Ox 100 02/19/25 10:07 O2 Del Method Room Air 02/19/25 10:07 Allergies Allergy/AdvReac Type Severity Reaction Status Date / Time No Known Allergies Allergy Verified 02/19/25 09:48 Home Medications ?Medication ?Instructions ?Recorded ?Confirmed ?Type lisinopril 10 mg tablet 10 mg PO DAILY 05/24/24 02/19/25 History acetaminophen 500 mg tablet 1,000 mg (2 x 500 mg) PO Q6H PRN 08/25/24 02/19/25 Rx (Tylenol Extra Strength) pain #50 tabs methocarbamol 750 mg tablet 750 mg PO TID PRN muscle spasm #30 08/25/24 02/19/25 Rx tabs albuterol sulfate 90 mcg/actuation 2 puff inhalation Q4-6H PRN 02/19/25 02/19/25 History aerosol inhaler shortness of breath or wheezing ibuprofen 200 mg tablet (IBU-200) 600 mg PO Q6H PRN pain 02/19/25 02/19/25 History Patient hx anesthesia problems: none Family hx anesthesia problems: none Results Review: All pre-operative results and documents have been reviewed as part of the pre-operative evaluation. [facility] Social History Social History Smoking packs per day: 1 Smoking cigarettes per day: 20.0 Years smoked: 40 Smoking pack-years: 40.00 Smoking status: Current every day smoker Tobacco type: cigarettes Alcohol intake: current Drinks per week: 14 Substance use: never Substance use type: does not use Living arrangements: with family Additional living arrangements comments: Spiritual care concerns: No Anes - Eval Final PreProcedure Day of Procedure 02/28/25 06:53 Patient weight: normal Lungs: normal air movement Airway: Mallampati scale class II Neurological: alert and oriented Last oral intake: >/= 8 hours ASA classification: III Emergent: no Anesthetic plan: proceed Anesthesia type and monitoring: general ETT and standard monitoring Results Review: All pre-operative results and documents have been reviewed as part of the pre-operative evaluation. HTN, smoker 15 cigs/day, ETOH use 2 beers/day. Pt very active without cp or sob. Informed Consent: The patient's anesthetic plan and its attendant risks and benefits were discussed with the patient/family/POA. Questions were solicited and answers provided to the satisfaction of the patient/family/POA.
[2025-02-28] MEDS: LACTATED RINGERS 1,000 ML 30 ML IV CONT ×2 (07:00→10:17)
[2025-02-28] MEDS: ceFAZolin 2 GM in SODIUM CHLORIDE 0.9% IV 50 ML 100 ML IVPB (07:30)
--- NOTE | 2025-02-28 08:49 | S_PTH ---
PATIENT: Jerrod Abdullahi LOC: [facility] U#:[id number] AGE/SX: 59/M ROOM: RE02/28/[address]: Mulugeta Lao MD : 1965 BED: DIS: 03/01/2025 SPEC #: [id number] RECD: 02/28/25 11:36 STATUS: BO REQ #: [id number] JUDIE: 02/28/25 08:[address]: Mulugeta Lao DEPT: [facility] Surgical RECD BY: Linette Pinto ENTERED: 02/28/25 11:36 SP TYPE: Surgical OTHR DR: Giacomo WallaceMD Tissues: A - Lymph Node B - Lymph Node C - Prostate Procedures: Hematoxylin and Eosin Stain Gross and Microscopic Level 4 Gross and Microscopic Level 6
[2025-02-28] MEDS: fentaNYL CITRATE INJ (*CRX) 100 MCG/2 ML VIAL 25 MCG IV PUSH ×7 (10:26→10:42)
--- NOTE | 2025-02-28 10:30 | P.OP_ITS ---
Procedure Note - Detailed Date of Procedure 02/28/25 Pre-op Diagnosis Prostate CA Post-op Diagnosis Same Procedure Performed Robotic assisted radical prostatectomy and bilateral pelvic lymphadenectomy Surgeon Mulugeta Lao MD Anesthesia General Description of Procedure The patient was brought to the operative suite, where he was prepped and draped in routine sterile fashion while in a dorsal lithotomy, deep Trendelenburg position. A supraumbilical 10 mm trocar was placed after insufflation of the abdomen with a Veress needle. Three robotic ports were then placed under direct vision. Two of these were placed in the right lower quadrant - 10 cm and 20 cm lateral to, and in line with, the umbilicus. A third robotic trocar was placed 10 cm to the left of the umbilicus, and 20 cm to the left of the umbilicus, a 12 mm standard laparoscopic trocar was placed to be used as an ophthalmic surgical assistant port. Lastly, a 5 mm trocar was placed in the left upper quadrant midway between the umbilicus and the left robotic trocar. Attention was then turned to the prostatectomy. I opted for a posterior approach in this patient. An incision was made in the parietal peritoneum along the posterior bladder/posterior prostate about 2 cm above the reflection of the peritoneum over the anterior rectum. The seminal vesicles and vas deferens were immediately identified. Dissection is undertaken in a fashion so as to avoid electrocautery as much as possible, particularly near the tips of the seminal vesicles. Dissection was also carried out in the midline so as to avoid any encounters with the ureters. The vas deferens and the seminal vesicles were dissected in their entirety to the base of the prostate. The plane anterior to Denoviller's fascia, anterior to the rectum and posterior to the prostate was then developed. I then dropped the bladder by incising the anterior parietal peritoneum just lateral to the median umbilical ligaments bilaterally. The bladder was dropped from the anterior abdominal and pelvic wall. The endopelvic fascia was identified and incised bilaterally, allowing for dissection of the posterior- lateral aspect of the prostate. The puboprostatic ligaments were transected near their origin from the posterior pubic ramus. This posterior lateral dissection of the prostate is also undertaken in a fashion so as to avoid electrocautery as much as possible. The dorsal vein of the penis is then secured with an 0 -Vicryl ligature. Attention is then turned to the bladder neck. The anterior bladder neck is incised at the vesico-prostatic junction. The previously placed urethral catheter was drawn through the urethrotomy. A very small bladder neck was maintained throughout the remainder of this dissection. The posterior bladder neck was incised in a fashion so as to avoid any injury to the ureteral orifices. Again, the small aperture of the bladder neck was maintained. The previously dissected vas deferens and the seminal vesicles were brought through the posterior bladder neck incision. The lateral prostatic pedicles were then carefully dissected from the lateral aspect of the prostate bilaterally. The prostatic pedicles were secured with Weck clips and transected. The neurovascular bundles were carefully dissected from the posterior-lateral aspect of the prostate. The dorsal vein of the penis was incised with electrocautery. Using cold scissors, the urethra was incised. After withdrawing the previously placed urethral catheter, the posterior urethra was sharply incised, as was the rectalurethralis muscle. Attention was then turned to an extended bilateral pelvic lymphadenectomy. The limits of this dissection were similar bilaterally. Specifically, the limits were the bifurcation of the common iliac vein proximally, the Dax's ligament distally, the pevic floor posteriorly. the pelvic sidewall laterally and the anterior aspect to the external iliac artery laterally. This dissection was undertaken with care to avoid any injury to the obturator nerve. The prostate, seminal vesicles and pelvic nodes were then placed in a specimen bag. The pelvis was copiously irrigated with saline. Urethrovesical anastomosis was then undertaken using similar two 3-0 V-lock sutures across a 20-Croatian urethral catheter. The catheter was irrigated, and there was found to be no evidence of an irrigant extravasation. I opted not to place a pelvic drain. The robot is undocked, and the trocars were removed. The specimen was removed through the supraumbilical incision. The anterior rectus fascia at that suprapubic site was closed with a looped 0-PDS. Subcutaneous tissue was irrigated. Skin incisions were closed with 4-0 Vicryl subcuticular. Blood loss throughout this was 75cc. The patient tolerated the procedure well, was taken to recovery room in good condition. Estimated Blood Loss 75 Drains No Packing No Pathology Yes Complications No immediate complications
[2025-02-28] MEDS: ONDANSETRON INJ 4 MG/2 ML VIAL IV PUSH (10:33)
[2025-02-28] MEDS: MORPHINE SULFATE (*CRX) 4 MG/ML INJ 2 MG IV PUSH ×5 (10:52→11:31)
--- NOTE | 2025-02-28 11:48 | ADMGEN ---
This patient, Jerrod Abdullahi, was admitted to 2 Medical Room 241-. Patient/family oriented to hospital policies and general routines including ID bracelet, bed and alarms, visiting hours, pain management, procedures, bathroom and other care routines, personal items, smoking policy, room service/diet, and visiting hours. Information on how to activate the Rapid Response Team has been discussed. Patient/Family are encouraged to report perceived risks to care and to ask questions if they do not understand what they are told or what they should do.
[2025-02-28] MEDS: LACTATED RINGERS 1,000 ML 125 ML IV CONT ×2 (12:06→21:18)
[2025-02-28] MEDS: KETOROLAC 30 MG/ML VIAL (*BKC) IV PUSH ×2 (12:06→17:40)
[2025-02-28] MEDS: HYOSCYAMINE SULFATE 0.125 MG TABLET SUBLINGUAL (12:10)
[2025-02-28] MEDS: MORPHINE SULFATE (*CRX) 4 MG/ML INJ 1 MG IV PUSH ×2 (14:32→19:20)
[2025-02-28] MEDS: NICOTINE (*PBKC) 21 MG PATCH 1 PATCH TRANSDERM (17:09)
[2025-03-01] MEDS: MORPHINE SULFATE (*CRX) 4 MG/ML INJ 1 MG IV PUSH (00:21)
[2025-03-01 03:54] VITALS: BP 122/68; PULSE 85; RESP 20; TEMP 36.8; O2SAT 100
[2025-03-01 05:30] LABS: Hematocrit 37.8 % (42.0-52.0); Hemoglobin 12.4 g/dL (14.0-18.0)
[2025-03-01 05:51] LABS: Anion Gap 4 mmol/L (4-12); Blood Urea Nitrogen 9 mg/dL (9-20); Calcium 8.3 mg/dL (8.4-10.2); Carbon Dioxide 25 mmol/L (22-30); Chloride 104 mmol/L (98-107); Estimated CRCL calculation 81 ml/min; Estimated Glomerular Filt Rate > 60; Glucose 103 mg/dL (65-110); Potassium 3.9 mmol/L (3.4-5.0); Sodium 133 mmol/L (137-145)
--- NOTE | 2025-03-01 07:03 | P.PNUR_ITS ---
Progress Note: A&P Assessment and Plan (1) Prostate cancer: Code(s): C61 - Malignant neoplasm of prostate Status: Acute Assessment and Plan: * Doing well postop day 1 * Crease diet ambulation this * Anticipate discharge this after Subjective Subjective Date/Time Seen: 03/01/25 07:03 Interval history: Comfortable, slept a bit last night Review of Systems Cardiovascular: Cardiovascular: Denies chest pain, Denies lightheadedness, Denies palpitations and Denies dyspnea Respiratory: Respiratory: Denies dyspnea Gastrointestinal: Gastrointestinal: Denies diarrhea, Denies nausea and Denies vomiting Genitourinary: Genitourinary: Denies hematuria and Denies dysuria Endocrine: Endocrine: Denies palpitations Exam Const: General: no acute distress Resp: Effort & Inspection: normal respiratory effort GI: Inspection: non-distended GI Palp: No abdominal tenderness and No Guarding due to palpation present (GI) Auscultation: normal bowel sounds Objective Data Vital Signs Vital Signs: Vital Signs - 24 hr 02/28/25 10:17 02/28/25 10:30 02/28/25 10:35 Temperature 97.3 F L Pulse Rate 85 77 Respiratory Rate 16 16 Blood Pressure 141/87 H 141/97 H Pulse Oximetry 100 100 100 Oxygen Delivery Simple Face Mask Simple Face Mask Room Air Oxygen Flow Rate 8 8 02/28/25 10:45 02/28/25 11:00 02/28/25 11:15 Temperature 97.6 F Pulse Rate 81 82 81 Respiratory Rate 12 16 16 Blood Pressure 156/89 H 145/85 H 141/92 H Pulse Oximetry 98 98 98 Oxygen Delivery Room Air Room Air Room Air Oxygen Flow Rate 02/28/25 11:30 02/28/25 12:29 02/28/25 13:19 Temperature 97.8 F Pulse Rate 79 82 Respiratory Rate 14 16 Blood Pressure 137/88 127/75 Pulse Oximetry 98 98 98 Oxygen Delivery Room Air Room Air Oxygen Flow Rate 02/28/25 17:19 02/28/25 20:00 02/28/25 20:42 Temperature 97.7 F 97.6 F Pulse Rate 73 86 Respiratory Rate 18 18 Blood Pressure 129/69 143/87 H Pulse Oximetry 100 100 Oxygen Delivery Room Air Oxygen Flow Rate 02/28/25 23:50 03/01/25 03:54 Temperature 98.6 F 98.2 F Pulse Rate 94 85 Respiratory Rate 16 20 Blood Pressure 141/85 H 122/68 Pulse Oximetry 97 100 Oxygen Delivery Oxygen Flow Rate Intake/Output Intake/Output: Intake & Output 02/26/25 02/27/25 02/28/25 03/01/25 23:59 23:59 23:59 23:59 Intake Total 3400 350 Output Total 460 1400 Balance 2940 -1050 Meds/Results Medications: Active Medications Generic Name Dose Route Start Last Admin Trade Name Freq PRN Reason Stop Dose Admin Albuterol 2 puff 02/28/25 11:34 Albuterol Sulfate (*Sp) Aerosol 1 Puff INHALATION Q4HRT PRN Shortness Of Breath Or Wheezing Fentanyl Citrate 25 mcg 02/27/25 21:21 02/28/25 10:42 Fentanyl Citrate Inj (*Crx) 100 Mcg/2 Ml Vial IV PUSH 25 mcg Q2M PRN Administration Pain Hyoscyamine 0.125 mg 02/28/25 11:34 02/28/25 12:10 Hyoscyamine Sulfate 0.125 Mg Tablet SUBLINGUAL 0.125 mg Q4H PRN Administration Bladder Spasm Lactated Ringer's 1,000 mls @ 30 mls/hr 02/27/25 21:25 02/28/25 13:23 Lr - Lactated Ringers Iv IV CONT Not Given .Q24H BLAYNE Lactated Ringer's 1,000 mls @ 30 mls/hr 02/27/25 21:25 02/28/25 13:23 Lr - Lactated Ringers Iv IV CONT Not Given .Q24H BLAYNE Lactated Ringer's 1,000 mls @ 125 mls/hr 02/28/25 11:34 02/28/25 21:18 Lr - Lactated Ringers Iv IV CONT 125 mls/hr .Q8H BLAYNE Administration Ketorolac Tromethamine 30 mg 02/28/25 11:34 02/28/25 17:40 Ketorolac 30 Mg/Ml Vial (*Bkc) IV PUSH 03/01/25 11:33 30 mg Q6H PRN Administration Pain Rated 4-6 Levofloxacin 500 mg 03/01/25 09:00 Levofloxacin 500 Mg Tablet PO DAILY BLAYNE Lisinopril 10 mg 03/01/25 09:00 Lisinopril 10 Mg Tablet PO DAILY BLAYNE Methocarbamol 750 mg 02/28/25 11:34 02/28/25 17:40 Methocarbamol 750 Mg Tablet PO 750 mg TID PRN Administration Muscle Spasm Morphine Sulfate 2 mg 02/28/25 10:46 02/28/25 11:31 Morphine Sulfate (*Crx) 4 Mg/Ml Inj IV PUSH 2 mg Q5M PRN Administration pain Morphine Sulfate 1 mg 02/28/25 11:34 03/01/25 00:21 Morphine Sulfate (*Crx) 4 Mg/Ml Inj IV PUSH 1 mg Q2H PRN Administration Pain Rated 7-10 Naloxone HCl 0.1 mg 02/28/25 11:34 Naloxone Hcl 0.4 Mg/Ml Vial IV PUSH Q2M PRN Opiate Reversal Nicotine 1 patch 02/28/25 17:04 02/28/25 17:09 Nicotine (*Pbkc) 21 Mg Patch TRANSDERM 1 patch DAILY BLAYNE Administration Ondansetron HCl 4 mg 02/27/25 21:21 02/28/25 10:33 Ondansetron Inj 4 Mg/2 Ml Vial IV PUSH 4 mg ONCE PRN Administration Nausea Oxycodone HCl 5 mg 02/27/25 21:21 Oxycodone Hcl (*Crx) 5 Mg Tab Ir PO ONCE PRN Pain Labs Labs: Laboratory Results - last 24 hr 03/01/25 04:50 Hgb 12.4 L Hct 37.8 L Sodium 133 L Potassium 3.9 Chloride 104 Carbon Dioxide 25 Anion Gap 4 BUN 9 Creatinine 0.94 Estim Creat Clear Calc 81 Estimated GFR > 60 Glucose 103 Calcium 8.3 L
[2025-03-01] MEDS: NICOTINE (*PBKC) 21 MG PATCH 1 PATCH TRANSDERM (07:27)
[2025-03-01] MEDS: KETOROLAC 30 MG/ML VIAL (*BKC) IV PUSH (07:28)
[2025-03-01 08:00] VITALS: O2SAT 100
[2025-03-01 08:35] VITALS: BP 134/88; PULSE 83; RESP 18; TEMP 36.6; O2SAT 97
[2025-03-01] MEDS: HYDROcodone/acetaminophen (*CRX) 5-325 MG TABLET 1 TAB PO (10:45)
[2025-03-01 13:06] VITALS: BP 145/87; PULSE 78; RESP 18; TEMP 36.5; O2SAT 100
--- NOTE | 2025-03-01 13:13 | P.DS_ITS ---
DS: Admitting Diagnosis Discharge Date 03/01/2025 Admitting Diagnosis Prostate cancer DS: Discharge Diagnosis Discharge Diagnosis (1) Prostate cancer: Code(s): C61 - Malignant neoplasm of prostate Status: Acute DS: Summary Hospital Course Hospital Course: This patient was admitted on the morning of his planned robotic prostatectomy. This procedure was uneventful, as was his postoperative course. By the evening of the procedure he was sitting at the bedside in tolerating a liquid diet. The following morning he was ambulating freely and tolerating regular food. His catheter drainage remained essentially clear throughout. His postoperative hem oglobin and serum creatinine were unremarkable. At the time of discharge he has been instructed in appropriate care for his Beckham catheter with both a leg bag and bedside bag. He will be discharged with plans to follow-up in 1 week with a cystogram. Time Spent with Patient Time attestation: Total time spent providing and/or coordinating discharge services: DS: Data Data Completed and Pending Completed studies during hospitalization: Pending at discharge 02/28/25 08:49 Surgical [PTH] Routine Surgical [PTH] Routine Surgical [PTH] Routine Labs on day of discharge: Labs from last 24 hours 03/01/25 04:50 Hgb 12.4 L Hct 37.8 L Sodium 133 L Potassium 3.9 Chloride 104 Carbon Dioxide 25 Anion Gap 4 BUN 9 Creatinine 0.94 Estim Creat Clear Calc 81 Estimated GFR > 60 Glucose 103 Calcium 8.3 L Discharge Plan Discharge Patient Disposition: Home Discharge Instructions: 1) Beckham catheter -> leg bag / bedside bag at night. 2) No lifting/straining >15lbs. x3 weeks. 3) No driving x1-week. 4) Resume normal, pre-operative diet. 5) My office will contact regarding follow-up in 1-week with cystogram. Patient Instructions: How to Stop Smoking (DC) Patient Language: Bangladeshi Stand Alone Forms: General Discharge Instructions Discharge Orders: Discharge Order (Routine); Ordered 03/01/25 Ordered By: Mulugeta Lao Discharge Medications: New docusate sodium [Colace] 100 mg capsule 100 mg PO DAILY Qty: 30 0RF hydrocodone-acetaminophen 5-325 mg tablet 1 - 2 tablet PO Q6H PRN (Reason: pain) Qty: 20 0RF cephalexin 500 mg capsule 500 mg PO Q8H Qty: 9 0RF hyoscyamine sulfate 0.125 mg tablet 0.125 mg PO Q6H PRN (Reason: bladder spasms) Qty: 20 2RF Continued acetaminophen [Tylenol Extra Strength] 500 mg tablet 1,000 mg PO Q6H PRN (Reason: pain) Qty: 50 0RF methocarbamol 750 mg tablet 750 mg PO TID PRN (Reason: muscle spasm) Qty: 30 0RF ibuprofen [IBU-200] 200 mg tablet 600 mg PO Q6H PRN (Reason: pain) albuterol sulfate 90 mcg/actuation HFA aerosol inhaler 2 puff INHALATION Q4-6H PRN (Reason: shortness of breath or wheezing) lisinopril 10 mg tablet 10 mg PO DAILY Patient Comments: BOUBACAR
== END 2025-03-01 13:25 | disposition home or self-care (01) ==
LOC: ANHSURGERY 11:13 → ANH2MED 11:39
PROVIDERS: PCP Internal Medicine; Visit Provider Urology
PROC: 0VT04ZZ Resection of Prostate, Percutaneous Endoscopic Approach (ICD-10-PCS; CPT 55867; principal; 2025-02-28 07:30)
DX: C61 Malignant neoplasm of prostate (principal); N41.1 Chronic prostatitis; R59.0 Localized enlarged lymph nodes; N40.0 Benign prostatic hyperplasia without lower urinary tract symptoms; I10 Essential (primary) hypertension; F17.210 Nicotine dependence, cigarettes, uncomplicated; Z79.51 Long term (current) use of inhaled steroids; Z79.1 Long term (current) use of non-steroidal anti-inflammatories (NSAID)
CPT/HCPCS: 55866; 38571; 36415; 80048; 85014; 85018; 88305; 88309; J0690; A9270; J1100; J1885; J2003; J2250; J2270; J2405; J2704; J3010; J7030; J7120; Q9968

== ENCOUNTER 2025-03-11 10:17 | Outpatient (CLI) | payer OTHER, SELFPAY ==
--- NOTE | ~2025-03-11 | XR_ITS ---
EXAMINATION: CYSTOGRAM DATE: 03/11/2025 11:14 INDICATION: Status post prostatectomy for prostate cancer TECHNIQUE: Initial floor director radiograph of the pelvis was performed. There was retrograde administration of Omnipaque 350 mixed with saline contrast into patient's existing Beckham catheter. 17 fluoroscopic images of the pelvis were obtained including a postvoid image. Fluoroscopy exposure time was 0.4 minutes. Total DAP was 11.795 Gycm^2. FINDINGS: Cooky Packer image demonstrates severe lower lumbar spondylosis. V-shaped configuration at the bladder outlet consistent with prior prostatectomy. No evident leak at the cystourethral anastomosis. There is a small bladder diverticulum likely related to to chronic outlet obstruction along the right side of the bladder. IMPRESSION: No bladder leak. Reviewed, dictated and finalized at location A. TAL PHOTO PRINTER IMPRESSION: No bladder leak.
--- OUTSIDE RECORDS SUMMARY | 2025-03-11 11:35 | XMS_ITS | Clinical Summary ---
Author Organization [facility] Address [address] [place] [id number] Care Team Providers Care Special Distribution Clerk Name Role Phone Unavailable Primary Care Provider [...]
== END 2025-03-11 10:18 | disposition home or self-care (01) ==
PROVIDERS: PCP Internal Medicine; Visit Provider Urology
DX: C61 Malignant neoplasm of prostate (principal)
CPT/HCPCS: 51600; 74430; Q9967